=== PATIENT | male | born 1955 | race Caucasian/White ===

== ENCOUNTER → 2017-04-20 | Outpatient (CLI) | payer BC ==
[~2017-04-20] MED LIST: ATIVAN1 MG PO; ATORVASTATIN CA40 MG PO; OLANZAPINE10 MG PO; VENLAFAXINE HC150 M1 PO
[2017-04-20 15:48] LABS: TYPE OF FLUID THORACENTESIS
[2017-04-20 16:27] LABS: BODY FLUID EOSINOPHILS 0 % (0-25); BODY FLUID RBC'S 16000 /MM^3 (0-100); BODY FLUID WBC'S 79925 /MM^3 (0-500); MONONUCLEAR WBC'S 15 %; POLYNUCLEAR WBC'S 85 % (0-25)
[2017-04-20 16:44] LABS: BODY FLUID LDH 7283 IU/L
[2017-04-22 09:04] LABS: BODY FLUID PROTEIN 4.9 G/DL
== END | disposition home or self-care (01) ==
LOC: RAD 14:08
PROVIDERS: Internal Medicine Pulmonary Disease
PROC: 0W9B3ZZ Drainage of Left Pleural Cavity, Percutaneous Approach (ICD-10-PCS; principal; 2017-04-20)
DX: J90 Pleural effusion, not elsewhere classified (principal)
CPT/HCPCS: 76942; 82945; 83615 91; 84157; 87070; 87075; 87076; 87116; 87205; 87206; 88108; 88305; 89051

== ENCOUNTER 2017-04-24 17:55 | Inpatient (IN) | payer BC ==
[~2017-04-24] VITALS: Ht 180.3 cm; Wt 76.8 kg
[2017-04-25 10:00] VITALS: BP 117/68
[2017-04-25 10:11] VITALS: BP 117/68
[2017-04-25 16:47] VITALS: BP 119/66
[2017-04-25 19:31] VITALS: BP 113/67
[2017-04-26] VITALS (7 sets, daily range): BP systolic 111–133; BP diastolic 61–73
[2017-04-26 05:52] LABS: HEMATOCRIT 36.6 % (38.0-50.0); HEMOGLOBIN 11.7 G/DL (12.5-16.6); MCH 29.3 PG (29.0-34.0); MCV 91.5 FL (86-99); PLATELET COUNT 477 K/uL (156-360); RBC DIS.WIDTH-CV 13.6 % (11.8-14.6); RBC DIS.WIDTH-SD 46.5 % (39-53); WHITE BLOOD COUNT 18.5 K/uL (4.1-10.2)
[2017-04-26 06:30] LABS: CHLORIDE 99 MEQ/L (99-109); CREATININE 0.9 MG/DL (0.6-1.3); GFR ESTIMATE (CALCULATED) > 59 mL/min/ (58.99-99999); GLUCOSE 136 mg/dL (70-99); MAGNESIUM 1.7 mg/dl (1.3-2.7); POTASSIUM 4.1 MEQ/L (3.7-5.4); SODIUM 136 MEQ/L (136-147); UREA NITROGEN (BUN) 16 mg/dL (9-23)
[2017-04-26 12:04] LABS: HEMATOCRIT 37.4 % (38.0-50.0); HEMOGLOBIN 12.4 G/DL (12.5-16.6); MCH 30.2 PG (29.0-34.0); MCHC 33.2 G/DL (30.0-36.0); MCV 91.2 FL (86-99); PLATELET COUNT 448 K/uL (156-360); RBC DIS.WIDTH-CV 13.6 % (11.8-14.6); RBC DIS.WIDTH-SD 46.4 % (39-53)
[2017-04-26 12:26] LABS: INTER. NORMALIZED RATIO 1.5
[2017-04-26 12:29] LABS: PTT 34.4 SEC (25-37)
[2017-04-26 12:58] LABS: ALBUMIN 2.5 G/DL (3.2-4.8); ALKALINE PHOSPHATASE 137 IU/L (3-129); ALT (GPT) 28 IU/L (3-49); AST (GOT) 21 IU/L (2-34); CHLORIDE 100 MEQ/L (99-109); CREATININE 0.9 MG/DL (0.6-1.3); GFR ESTIMATE (CALCULATED) > 59 mL/min/ (58.99-99999); GLUCOSE 117 mg/dL (70-99); POTASSIUM 4.6 MEQ/L (3.7-5.4); SODIUM 136 MEQ/L (136-147); TOTAL BILIRUBIN 0.4 MG/DL (0.0-1.0); TOTAL PROTEIN 6.4 G/DL (6.4-8.3); UREA NITROGEN (BUN) 17 mg/dL (9-23)
[2017-04-27 03:45] VITALS: BP 116/67
[2017-04-27 06:52] LABS: CHLORIDE 102 MEQ/L (99-109); CREATININE 0.8 MG/DL (0.6-1.3); GFR ESTIMATE (CALCULATED) > 59 mL/min/ (58.99-99999); GLUCOSE 113 mg/dL (70-99); POTASSIUM 3.8 MEQ/L (3.7-5.4); SODIUM 135 MEQ/L (136-147); UREA NITROGEN (BUN) 12 mg/dL (9-23)
[2017-04-27 07:04] VITALS: BP 121/71
[2017-04-27 07:05] LABS: HEMATOCRIT 32.4 % (38.0-50.0); HEMOGLOBIN 10.5 G/DL (12.5-16.6); MCH 29.7 PG (29.0-34.0); MCHC 32.4 G/DL (30.0-36.0); MCV 91.8 FL (86-99); PLATELET COUNT 426 K/uL (156-360); RBC DIS.WIDTH-CV 13.7 % (11.8-14.6); RBC DIS.WIDTH-SD 46.1 % (39-53); RED BLOOD COUNT 3.53 M/uL (4.00-5.50); WHITE BLOOD COUNT 13.6 K/uL (4.1-10.2)
[2017-04-27 11:37] VITALS: BP 114/65
[2017-04-27 15:15] VITALS: BP 115/63
[2017-04-27 19:02] VITALS: BP 111/65
[2017-04-27 23:16] VITALS: BP 120/68
[2017-04-28 03:40] VITALS: BP 131/67
[2017-04-28 06:59] LABS: BASOPHIL (%) 0.3 % (0-1); EOSINOPHIL (%) 1.9 % (0-5); EOSINOPHIL COUNT 0.2 K/uL (0-0.3); HEMATOCRIT 35.4 % (38.0-50.0); HEMOGLOBIN 11.3 G/DL (12.5-16.6); IMMATURE GRANULOCYTE (%) 0.4 % (0.0-0.7); LYMPHOCYTE (%) 14.3 % (15-42); LYMPHOCYTE COUNT 1.6 K/uL (1.0-2.8); MCH 29.2 PG (29.0-34.0); MCHC 31.9 G/DL (30.0-36.0); MCV 91.5 FL (86-99); MONOCYTE (%) 5.5 % (3-12); MONOCYTE COUNT 0.6 K/uL (0-0.8); NEUTROPHIL (%) 77.6 % (45-76); NEUTROPHIL COUNT 8.9 K/uL (1.8-6.4); PLATELET COUNT 422 K/uL (156-360); RBC DIS.WIDTH-CV 13.4 % (11.8-14.6); RBC DIS.WIDTH-SD 45.4 % (39-53); RED BLOOD COUNT 3.87 M/uL (4.00-5.50); WHITE BLOOD COUNT 11.5 K/uL (4.1-10.2)
[2017-04-28 07:34] LABS: ALBUMIN 2.4 G/DL (3.2-4.8); ALKALINE PHOSPHATASE 135 IU/L (3-129); CHLORIDE 102 MEQ/L (99-109); CREATININE 0.7 MG/DL (0.6-1.3); GFR ESTIMATE (CALCULATED) > 59 mL/min/ (58.99-99999); GLUCOSE 101 mg/dL (70-99); POTASSIUM 4.3 MEQ/L (3.7-5.4); SODIUM 137 MEQ/L (136-147); UREA NITROGEN (BUN) 8 mg/dL (9-23)
[2017-04-28 07:39] LABS: ALT (GPT) 73 IU/L (3-49); AST (GOT) 73 IU/L (2-34); TOTAL BILIRUBIN 0.2 MG/DL (0.0-1.0)
[2017-04-28 08:01] VITALS: BP 121/71
[2017-04-28 08:55] LABS: DIRECT BILIRUBIN 0.1 mg/dL (0.0-0.3)
[2017-04-28 11:30] VITALS: BP 125/69
[2017-04-28 15:57] VITALS: BP 124/80
[2017-04-28 20:27] VITALS: BP 122/63
[2017-04-29 00:05] VITALS: BP 121/77
[2017-04-29 04:21] VITALS: BP 116/72
[2017-04-29 07:03] LABS: BASOPHIL (%) 0.4 % (0-1); EOSINOPHIL (%) 2.8 % (0-5); EOSINOPHIL COUNT 0.3 K/uL (0-0.3); HEMATOCRIT 38.5 % (38.0-50.0); HEMOGLOBIN 12.1 G/DL (12.5-16.6); IMMATURE GRANULOCYTE (%) 0.4 % (0.0-0.7); LYMPHOCYTE (%) 18.6 % (15-42); LYMPHOCYTE COUNT 1.8 K/uL (1.0-2.8); MCH 28.7 PG (29.0-34.0); MCHC 31.4 G/DL (30.0-36.0); MCV 91.2 FL (86-99); MONOCYTE (%) 4.5 % (3-12); MONOCYTE COUNT 0.4 K/uL (0-0.8); NEUTROPHIL (%) 73.3 % (45-76); NEUTROPHIL COUNT 7.1 K/uL (1.8-6.4); PLATELET COUNT 463 K/uL (156-360); RBC DIS.WIDTH-CV 13.4 % (11.8-14.6); RED BLOOD COUNT 4.22 M/uL (4.00-5.50); WHITE BLOOD COUNT 9.7 K/uL (4.1-10.2)
[2017-04-29 07:25] LABS: ALBUMIN 2.5 G/DL (3.2-4.8); ALKALINE PHOSPHATASE 135 IU/L (3-129); ALT (GPT) 85 IU/L (3-49); AST (GOT) 57 IU/L (2-34); CHLORIDE 102 MEQ/L (99-109); CREATININE 0.7 MG/DL (0.6-1.3); GFR ESTIMATE (CALCULATED) > 59 mL/min/ (58.99-99999); GLUCOSE 101 mg/dL (70-99); POTASSIUM 4.5 MEQ/L (3.7-5.4); SODIUM 138 MEQ/L (136-147); TOTAL PROTEIN 6.8 G/DL (6.4-8.3); UREA NITROGEN (BUN) 7 mg/dL (9-23)
[2017-04-29 07:29] LABS: TOTAL BILIRUBIN 0.3 MG/DL (0.0-1.0)
[2017-04-29 08:42] VITALS: BP 124/74
[2017-04-29 10:18] LABS: HEPATITIS B SURFACE ANTIGEN Nonreactive
[2017-04-29 10:19] LABS: HEPATITIS C ANTIBODY Nonreactive
[2017-04-29 10:20] LABS: ANTI-HEPATITIS A VIRUS (IGM) Nonreactive
[2017-04-29 10:21] LABS: ANTI-HEPATITIS B CORE (IGM) Nonreactive
[2017-04-29 11:14] VITALS: BP 117/63
[2017-04-29 15:53] VITALS: BP 128/75
[2017-04-29 20:01] VITALS: BP 116/68
[2017-04-30] VITALS (7 sets, daily range): BP systolic 110–127; BP diastolic 69–85
[2017-04-30 07:05] LABS: BASOPHIL (%) 0.4 % (0-1); EOSINOPHIL (%) 3.5 % (0-5); EOSINOPHIL COUNT 0.4 K/uL (0-0.3); HEMATOCRIT 35.8 % (38.0-50.0); HEMOGLOBIN 11.9 G/DL (12.5-16.6); IMMATURE GRANULOCYTE (%) 0.4 % (0.0-0.7); LYMPHOCYTE (%) 20.1 % (15-42); MCH 30.5 PG (29.0-34.0); MCHC 33.2 G/DL (30.0-36.0); MCV 91.8 FL (86-99); MONOCYTE (%) 6.4 % (3-12); MONOCYTE COUNT 0.6 K/uL (0-0.8); NEUTROPHIL (%) 69.2 % (45-76); NEUTROPHIL COUNT 6.8 K/uL (1.8-6.4); PLATELET COUNT 417 K/uL (156-360); RBC DIS.WIDTH-CV 13.5 % (11.8-14.6); RBC DIS.WIDTH-SD 46.1 % (39-53); WHITE BLOOD COUNT 9.9 K/uL (4.1-10.2)
[2017-04-30 07:34] LABS: ALBUMIN 2.4 G/DL (3.2-4.8); ALKALINE PHOSPHATASE 117 IU/L (3-129); ALT (GPT) 71 IU/L (3-49); AST (GOT) 42 IU/L (2-34); CHLORIDE 104 MEQ/L (99-109); CREATININE 0.7 MG/DL (0.6-1.3); GFR ESTIMATE (CALCULATED) > 59 mL/min/ (58.99-99999); GLUCOSE 99 mg/dL (70-99); POTASSIUM 4.4 MEQ/L (3.7-5.4); SODIUM 137 MEQ/L (136-147); TOTAL PROTEIN 6.4 G/DL (6.4-8.3); UREA NITROGEN (BUN) 11 mg/dL (9-23)
[2017-04-30 07:37] LABS: TOTAL BILIRUBIN 0.2 MG/DL (0.0-1.0)
[2017-05-01 04:00] VITALS: BP 108/57
[2017-05-01 07:15] VITALS: BP 125/79
[2017-05-01 11:17] VITALS: BP 124/77
[2017-05-01 23:39] VITALS: BP 107/65
[2017-05-02 03:41] VITALS: BP 113/68
[2017-05-02 05:03] LABS: BASOPHIL (%) 0.2 % (0-1); EOSINOPHIL (%) 0.4 % (0-5); EOSINOPHIL COUNT 0.1 K/uL (0-0.3); HEMOGLOBIN 10.1 G/DL (12.5-16.6); IMMATURE GRANULOCYTE (%) 0.5 % (0.0-0.7); LYMPHOCYTE (%) 13.8 % (15-42); LYMPHOCYTE COUNT 2.3 K/uL (1.0-2.8); MCH 29.7 PG (29.0-34.0); MCHC 32.6 G/DL (30.0-36.0); MCV 91.2 FL (86-99); MONOCYTE (%) 5.2 % (3-12); MONOCYTE COUNT 0.9 K/uL (0-0.8); NEUTROPHIL (%) 79.9 % (45-76); NEUTROPHIL COUNT 13.3 K/uL (1.8-6.4); PLATELET COUNT 397 K/uL (156-360); RBC DIS.WIDTH-CV 13.9 % (11.8-14.6); RBC DIS.WIDTH-SD 46.3 % (39-53); WHITE BLOOD COUNT 16.7 K/uL (4.1-10.2)
[2017-05-02 05:19] LABS: CHLORIDE 105 mEq/L (99-109); POTASSIUM 3.9 mEq/L (3.7-5.4); SODIUM 137 mEq/L (136-147)
[2017-05-02 05:20] LABS: GLUCOSE 115 mg/dL (70-99)
[2017-05-02 05:24] LABS: ALBUMIN 2.3 g/dL (3.2-4.8); CHLORIDE 104 mEq/L (99-109); CREATININE 0.8 mg/dL (0.6-1.3); GFR ESTIMATE (CALCULATED) > 59 mL/min/ (58.99-99999); POTASSIUM 3.8 mEq/L (3.7-5.4); SODIUM 137 mEq/L (136-147)
[2017-05-02 05:25] LABS: UREA NITROGEN (BUN) 15 mg/dL (9-23)
[2017-05-02 05:26] LABS: GLUCOSE 114 mg/dL (70-99); TOTAL PROTEIN 6.2 g/dL (6.4-8.3)
[2017-05-02 05:28] LABS: TOTAL BILIRUBIN 0.3 mg/dL (0.0-1.0)
[2017-05-02 05:30] LABS: ALKALINE PHOSPHATASE 101 IU/L (3-129); CREATININE 0.8 mg/dL (0.6-1.3); GFR ESTIMATE (CALCULATED) > 59 mL/min/ (58.99-99999)
[2017-05-02 05:31] LABS: UREA NITROGEN (BUN) 15 mg/dL (9-23)
[2017-05-02 05:32] LABS: AST (GOT) 31 IU/L (2-34)
[2017-05-02 05:33] LABS: ALT (GPT) 52 IU/L (3-49)
[2017-05-02 08:30] VITALS: BP 116/57
[2017-05-02 12:15] VITALS: BP 120/65
[2017-05-02 16:45] VITALS: BP 131/70
[2017-05-02 20:06] VITALS: BP 103/65
[2017-05-02 23:10] VITALS: BP 127/66
[2017-05-03 04:00] VITALS: BP 130/79
[2017-05-03 06:27] LABS: BASOPHIL (%) 0.2 % (0-1); EOSINOPHIL (%) 1.9 % (0-5); EOSINOPHIL COUNT 0.2 K/uL (0-0.3); HEMOGLOBIN 9.6 G/DL (12.5-16.6); IMMATURE GRANULOCYTE (%) 0.5 % (0.0-0.7); LYMPHOCYTE (%) 17.3 % (15-42); LYMPHOCYTE COUNT 2.2 K/uL (1.0-2.8); MCH 28.9 PG (29.0-34.0); MCV 90.4 FL (86-99); MONOCYTE (%) 7.2 % (3-12); MONOCYTE COUNT 0.9 K/uL (0-0.8); NEUTROPHIL (%) 72.9 % (45-76); NEUTROPHIL COUNT 9.4 K/uL (1.8-6.4); PLATELET COUNT 401 K/uL (156-360); RBC DIS.WIDTH-CV 13.9 % (11.8-14.6); RBC DIS.WIDTH-SD 46.4 % (39-53); RED BLOOD COUNT 3.32 M/uL (4.00-5.50); WHITE BLOOD COUNT 12.9 K/uL (4.1-10.2)
[2017-05-03 06:43] LABS: ALBUMIN 2.5 G/DL (3.2-4.8); ALKALINE PHOSPHATASE 91 IU/L (3-129); ALT (GPT) 33 IU/L (3-49); CHLORIDE 103 MEQ/L (99-109); CREATININE 0.6 MG/DL (0.6-1.3); GFR ESTIMATE (CALCULATED) > 59 mL/min/ (58.99-99999); GLUCOSE 94 mg/dL (70-99); POTASSIUM 3.8 MEQ/L (3.7-5.4); SODIUM 136 MEQ/L (136-147); TOTAL PROTEIN 6.6 G/DL (6.4-8.3); UREA NITROGEN (BUN) 10 mg/dL (9-23)
[2017-05-03 06:46] LABS: AST (GOT) 19 IU/L (2-34); TOTAL BILIRUBIN 0.3 MG/DL (0.0-1.0)
[2017-05-03 08:30] VITALS: BP 146/75
[2017-05-03 12:08] VITALS: BP 128/79
[2017-05-03 16:30] VITALS: BP 135/78
[2017-05-04 00:28] VITALS: BP 146/76
[2017-05-04 04:21] VITALS: BP 132/76
[2017-05-04 05:48] LABS: BASOPHIL (%) 0.3 % (0-1); EOSINOPHIL (%) 2.2 % (0-5); EOSINOPHIL COUNT 0.3 K/uL (0-0.3); HEMATOCRIT 30.1 % (38.0-50.0); HEMOGLOBIN 9.8 G/DL (12.5-16.6); IMMATURE GRANULOCYTE (%) 0.3 % (0.0-0.7); LYMPHOCYTE COUNT 2.3 K/uL (1.0-2.8); MCH 29.3 PG (29.0-34.0); MCHC 32.6 G/DL (30.0-36.0); MCV 89.9 FL (86-99); MONOCYTE (%) 7.2 % (3-12); MONOCYTE COUNT 0.9 K/uL (0-0.8); NEUTROPHIL COUNT 8.5 K/uL (1.8-6.4); PLATELET COUNT 414 K/uL (156-360); RBC DIS.WIDTH-CV 13.9 % (11.8-14.6); RBC DIS.WIDTH-SD 45.3 % (39-53); RED BLOOD COUNT 3.35 M/uL (4.00-5.50)
[2017-05-04 06:22] LABS: CHLORIDE 100 MEQ/L (99-109); CREATININE 0.6 MG/DL (0.6-1.3); GFR ESTIMATE (CALCULATED) > 59 mL/min/ (58.99-99999); GLUCOSE 100 mg/dL (70-99); POTASSIUM 4.2 MEQ/L (3.7-5.4); SODIUM 133 MEQ/L (136-147); UREA NITROGEN (BUN) 10 mg/dL (9-23)
[2017-05-04 08:41] VITALS: BP 137/80
[2017-05-04 12:15] VITALS: BP 123/77
[2017-05-04 16:07] VITALS: BP 139/80
[2017-05-04 19:42] VITALS: BP 132/77
[2017-05-05 00:10] VITALS: BP 127/73
[2017-05-05 03:30] VITALS: BP 150/80
[2017-05-05 08:59] VITALS: BP 123/81
[2017-05-05 12:10] VITALS: BP 125/81
[2017-05-05 14:59] VITALS: BP 121/77
[2017-05-05 21:15] VITALS: BP 125/78
[2017-05-06 03:57] VITALS: BP 122/77
[2017-05-06 05:40] LABS: HEMATOCRIT 34.1 % (38.0-50.0); MCH 29.3 PG (29.0-34.0); MCHC 32.3 G/DL (30.0-36.0); MCV 90.7 FL (86-99); PLATELET COUNT 459 K/uL (156-360); RBC DIS.WIDTH-CV 13.9 % (11.8-14.6); RBC DIS.WIDTH-SD 46.3 % (39-53); RED BLOOD COUNT 3.76 M/uL (4.00-5.50); WHITE BLOOD COUNT 10.9 K/uL (4.1-10.2)
[2017-05-06 08:40] VITALS: BP 110/70
[2017-05-06 16:00] VITALS: BP 125/74
[2017-05-06 19:14] VITALS: BP 116/65
[2017-05-06 22:17] VITALS: BP 103/62
[2017-05-07 04:15] VITALS: BP 110/71
[2017-05-07 06:47] VITALS: BP 109/68
[2017-05-07 11:54] VITALS: BP 119/67
[2017-05-07 15:58] VITALS: BP 118/75
[2017-05-07 20:05] VITALS: BP 109/67
[2017-05-08] VITALS (7 sets, daily range): BP systolic 113–144; BP diastolic 70–76
[2017-05-09 05:04] VITALS: BP 127/73
[2017-05-09 05:32] LABS: HEMATOCRIT 33.6 % (38.0-50.0); HEMOGLOBIN 10.8 G/DL (12.5-16.6); MCH 29.1 PG (29.0-34.0); MCHC 32.1 G/DL (30.0-36.0); MCV 90.6 FL (86-99); PLATELET COUNT 435 K/uL (156-360); RBC DIS.WIDTH-CV 14.1 % (11.8-14.6); RBC DIS.WIDTH-SD 46.3 % (39-53); RED BLOOD COUNT 3.71 M/uL (4.00-5.50); WHITE BLOOD COUNT 13.4 K/uL (4.1-10.2)
[2017-05-09 06:12] LABS: CHLORIDE 99 MEQ/L (99-109); CREATININE 0.7 MG/DL (0.6-1.3); GFR ESTIMATE (CALCULATED) > 59 mL/min/ (58.99-99999); GLUCOSE 97 mg/dL (70-99); POTASSIUM 4.4 MEQ/L (3.7-5.4); SODIUM 133 MEQ/L (136-147); UREA NITROGEN (BUN) 16 mg/dL (9-23)
[2017-05-09 08:30] VITALS: BP 127/75
[2017-05-09 15:16] VITALS: BP 125/72
[2017-05-09 23:04] VITALS: BP 157/68
[2017-05-10 02:58] VITALS: BP 128/74
[2017-05-10 08:00] VITALS: BP 129/81
[2017-05-10 12:16] VITALS: BP 131/81
[2017-05-10 16:28] VITALS: BP 123/76
[2017-05-10 21:00] VITALS: BP 127/66
[2017-05-11 07:21] VITALS: BP 135/79
[2017-05-11] MEDS ORDERED: AUGMENTIN875 MG PO (10:40)
== END 2017-05-11 16:22 | disposition home health service (06) | DRG 164 ==
LOC: 5EAST 17:55 → ENRESERV 21:25 → CANRESERV 21:25 → 4EAST 04-25 09:37 → 3EAST 04-25 09:37 → ENRESERV 05-01 16:14 → 4EAST 05-01 21:18
PROVIDERS: Family Medicine; Hospitalist; Internal Medicine; Internal Medicine Pulmonary Disease; Thoracic Surgery (Cardiothoracic Vascular Surgery)
DX: J86.9 Pyothorax without fistula (principal); J90 Pleural effusion, not elsewhere classified; J98.11 Atelectasis; J44.9 Chronic obstructive pulmonary disease, unspecified; E78.00 Pure hypercholesterolemia, unspecified; E78.5 Hyperlipidemia, unspecified; F31.9 Bipolar disorder, unspecified; F41.9 Anxiety disorder, unspecified; M72.0 Palmar fascial fibromatosis [Dupuytren]; F17.200 Nicotine dependence, unspecified, uncomplicated; K05.10 Chronic gingivitis, plaque induced; K05.20 Aggressive periodontitis, unspecified
CPT/HCPCS: 71010; 71020; 71045; 71046; 80048; 80048 91; 80053; 80074; 82248; 83735; 85025; 85027; 85610; 85730; 87070; 87075; 87205; 88305; 94010; 94640; 94640 76; 94667; 94668; 99202; J0295; J0330; J1100; J1644; J1885; J2250; J2405; J2543; J3010; J7050; J7120